=== PATIENT | male | born 1985 | race Caucasian/White ===

== ENCOUNTER 2018-10-22 17:13 | Emergency (ER) | payer SELFPAY ==
[2018-10-22 17:18] VITALS: BP 135/88; PULSE 75; TEMP 98.2; BMI 39.5
[2018-10-22] MEDS ORDERED: KETOROLAC TROMETHAMINE 30 MG/1 ML VIAL IM ONE (17:18)
--- NOTE | 2018-10-22 17:18 | PDOC ---
Rapid Medical Evaluation Time Seen by Provider: 10/22/18 17:15 Medical Evaluation: 10/22/18 17:17 This patient had a brief in-person evaluation in triage CC:lower back pain x 3 days. Reports pain radiating into both testicles states heavy lifting at work. Denies numbness in lower legs PE: NAD unlabored breathing no mid spinal tenderness orders: analgesia, u/a This patient will proceed to the ED for further evaluation Discharge Disposition - Diagnosis Lower back pain - Referrals - Patient Instructions - Post Discharge Activity
[2018-10-22] MEDS ORDERED: KETOROLAC TROMETHAMINE 30 MG/1 ML VIAL ONE (18:40)
--- NOTE | 2018-10-22 18:55 | PDOC ---
History of Present Illness - General Chief Complaint: Pain Stated Complaint: BACK/TESTICULAR PAIN Time Seen by Provider: 10/22/18 17:15 - History of Present Illness Initial Comments: 10/22/18 18:52 32-year-old male without comorbidities presents for evaluation of lower back pain radiating into his testicles times one week after trying to lift a heavy box of cheese at work a week ago. No systemic symptoms loss of bowel or bladder function saddle paresthesia or urinary issues. Past History - Past Medical History Allergies/Adverse Reactions: Allergies Allergy/AdvReac Type Severity Reaction Status Date / Time No Known Allergies Allergy Verified 10/22/18 17:18 COPD: No - Suicide/Smoking/Psychosocial Hx Smoking History: Never smoked Information on smoking cessation initiated: No Hx Alcohol Use: No Drug/Substance Use Hx: No Review of Systems - Review of Systems Musculoskeletal: Yes: Back Pain *Physical Exam - Vital Signs Last Vital Signs Temp Pulse Resp BP Pulse Ox 98.2 F 75 18 135/88 98 10/22/18 17:16 10/22/18 17:16 10/22/18 17:16 10/22/18 17:16 10/22/18 17:16 - Physical Exam Comments: 10/22/18 18:52 Lumbar spine skin color temperature are normal. Range of motion is full and nonpainful. No midline tenderness. Moderate right and left paralumbar musculature spasm and tenderness. 5 out of 5 strength bilateral lower extremities without gross sensory motor deficits neurovascular intact negative straight leg raise test. External genitalia is normal. Testicles are nontender. There is no palpable hernias inguinal or abdominal Medical Decision Making - Medical Decision Making 10/22/18 18:53 This is lumbar radiculopathy with testicular radicular symptoms. Racheal Scott follow-up with neurosurgery *DC/Admit/Observation/Transfer Diagnosis at time of Disposition: Lower back pain, Lumbar strain - Discharge Dispostion Disposition: HOME Condition at time of disposition: Stable Decision to Admit order: No - Referrals Referrals: Manjeet Collazo MD, [facility] [Staff Physician] - - Patient Instructions Printed Discharge Instructions: Lumbar Radiculopathy, DI for Lumbar Radiculopathy Additional Instructions: Please take the anti-inflammatory muscle relaxer as directed. Return to the emergency room for worsening symptoms. Follow-up with neurosurgery in 1-2 days without fail for further evaluation and treatment options. - Post Discharge Activity
== END 2018-10-22 19:14 | disposition home or self-care (01) ==
LOC: JER 17:13 → JERFT 17:13
PROC: 3E0233Z Introduction of Anti-inflammatory into Muscle, Percutaneous Approach (ICD-10-PCS; principal; 2018-10-22)
DX: M54.5 Low back pain (principal); S39.012A Strain of muscle, fascia and tendon of lower back, initial encounter; X58.XXXA Exposure to other specified factors, initial encounter; Y93.89 Activity, other specified; Y92.89 Other specified places as the place of occurrence of the external cause; Y99.0 Civilian activity done for income or pay
CPT/HCPCS: 99282-25

== ENCOUNTER 2018-11-22 04:18 | Emergency (ER) | payer SELFPAY ==
--- NOTE | 2018-11-22 04:26 | PDOC ---
History of Present Illness - General Stated Complaint: EARACHE - History of Present Illness Initial Comments: The pt is a 32M w/ no reported PMH who presents for evaluation of 1 day of right ear pain and drainage. He reports constant, throbbing, right ear pain that does not radiate, is not associated with hearing changes, is associated with ear drainage, is exacerbated by touch and not alleviated by anything he can identify. Denies fevers/chills, changes in hearing, changes in vision, N/V/C/D, chest pain , trouble breathing 11/22/18 04:41 Past History - Past Medical History Allergies/Adverse Reactions: Allergies Allergy/AdvReac Type Severity Reaction Status Date / Time No Known Allergies Allergy Verified 10/22/18 17:18 Home Medications: Ambulatory Orders Cyclobenzaprine HCl [Flexeril 10 mg] 10 mg PO HS PRN #10 tablet 10/22/18 Ibuprofen [Motrin -] 600 mg PO TID #30 tablet 10/22/18 Amox-Tr/K Cl [Augmentin - 500Mg Tablet] 1 tab PO TID #21 tab 11/22/18 Ofloxacin Otic [Floxin Otic (Ear) Solution -] 10 drop OT BID 5 Days #1 bottle COPD: No - Suicide/Smoking/Psychosocial Hx Smoking History: Never smoked Hx Alcohol Use: No Drug/Substance Use Hx: No Review of Systems - Review of Systems Able to Perform ROS?: Yes Comments:: GENERAL/CONSTITUTIONAL: No fever or chills. No weakness HEAD, EYES, EARS, NOSE AND THROAT: No change in vision. No sore throat CARDIOVASCULAR: No chest pain or shortness of breath RESPIRATORY: Denies cough, hemoptysis GASTROINTESTINAL: No nausea, vomiting, diarrhea or constipation GENITOURINARY: No dysuria, frequency, or change in urination MUSCULOSKELETAL: No joint or muscle swelling or pain. No neck or back pain SKIN: No rash NEUROLOGIC: No headache, vertigo, loss of consciousness, or change in strength/ sensation ENDOCRINE: No increased thirst. No abnormal weight change HEMATOLOGIC/LYMPHATIC: No anemia, easy bleeding, or history of blood clots ALLERGIC/IMMUNOLOGIC: No hives or skin allergy 11/22/18 04:25 Is the patient limited Pashto proficient: No *Physical Exam - Physical Exam Comments: GENERAL: Awake, alert, and oriented to person/place/time, in no acute distress HEAD: No signs of trauma, normocephalic, atraumatic EYES: PERRLA, EOMI, sclera anicteric, conjunctiva clear ENT: Hearing grossly normal, nares patent; R TM w/ effusion; R EAM w/ swelling/ erythema/and drainage; L TM normal; No uvular deviation. Moist mucosa LUNGS: No distress, speaks in full sentences, clear to auscultation bilaterally HEART: Regular rate and rhythm, normal S1 and S2, no murmurs appreciated, peripheral pulses normal and equal bilaterally ABDOMEN: Soft, nontender, normoactive bowel sounds. No guarding, no rebound EXTREMITIES: Normal inspection, Normal range of motion, no edema. No clubbing or cyanosis NEUROLOGICAL: Cranial nerves II through XII grossly intact. Normal speech, normal gait, no focal sensorimotor deficits SKIN: Warm, Dry 11/22/18 04:26 Medical Decision Making - Medical Decision Making The pt is a 32M w/ no reported PMH who presents for evaluation of 1 day of right ear pain and drainage likely due to OM/OE ED Course Augementin 500 PO Rx for Augmentin and Floxacin Otic gtt Plan for D/C w/ PCP f/u Discharge instructions and return precautions given Pt in agreement and verbalized understanding Dispo: home 11/22/18 04:52 *DC/Admit/Observation/Transfer Diagnosis at time of Disposition: Right otitis media Qualifiers: Otitis media type: unspecified Qualified Code(s): H66.91 - Otitis media, unspecified, right ear Right otitis externa Qualifiers: Otitis externa type: unspecified type Chronicity: acute Qualified Code(s): H60.501 - Unspecified acute noninfective otitis externa, right ear - Discharge Dispostion Disposition: HOME Condition at time of disposition: Stable Decision to Admit order: No - Prescriptions Prescriptions: Amox-Tr/K Cl [Augmentin - 500Mg Tablet] 1 tab PO TID #21 tab Ofloxacin Otic [Floxin Otic (Ear) Solution -] 10 drop OT BID 5 Days #1 bottle - [place] [facility] [place] [facility] [place]] Delroy Shankar MD [Staff Physician] - - Patient Instructions Printed Discharge Instructions: DI for Otitis Externa Additional Instructions: You were seen in the Emergency Department for evaluation of right ear pain and were found to have an infection of you right ear. A prescription for oral antibiotics and antibiotic drops were sent to your pharmacy. Take as directed. Follow up with your primary care provider or referral given. Return to the Emergency Department if you develop fevers/chills, changes in hearing, worsening symptoms, or any new/concerning symptoms. Lo vieron en el Departamento de Emergencias para evaluar el dolor en el odo derecho y se descubri que sepideh wilder infeccin en el odo derecho. Se envi wilder receta para antibiticos orales y gotas antibiticas a chapa farmacia. Tmelo delmi se le indique. Umair un seguimiento con chapa proveedor de atencin primaria o remisin. Regrese al Departamento de Emergencias si desarrolla fiebre / escalofros, cambios en la audicin, empeoramiento de los sntomas o cualquier sntoma nuevo o preocupante. Print Language: BANGLADESHI - Post Discharge Activity
[2018-11-22] MEDS ORDERED: ACETAMINOPHEN 325 MG TABLET (FP) PO ONE (04:38)
[2018-11-22] MEDS ORDERED: AMOX TR/POT CLAV 500MG/125MG TABLETS (FP) PO ONE (04:39)
--- NOTE | 2018-11-22 04:43 | PDOC ---
Attending Attestation - Resident Resident Name: GracieRene serrano - ED Attending Attestation I have performed the following: I have examined & evaluated the patient, The case was reviewed & discussed with the resident, I agree w/resident's findings & plan - HPI HPI: 11/22/18 04:53 Pt comes with bilat ear pain. No ill contacts. No swimming and no exposure to water. - Physicial Exam PE: 11/22/18 04:54 Agree with resident exam. Pt is afebrile. Pt has no other complaints. Pt appears well. - Medical Decision Making 11/22/18 04:56 Home with ear drops and augmentin BID x 7 days and ENT follow up. 11/22/18 05:22 Pt stable for discharge
[2018-11-22] MEDS ORDERED: ACETAMINOPHEN 325 MG TABLET (FP) ONE (04:45)
[2018-11-22] MEDS ORDERED: AMOX TR/POT CLAV 500MG/125MG TABLETS (FP) ONE (04:45)
[2018-11-22 04:50] VITALS: BP 145/96; PULSE 72; TEMP 98; BMI 37.5
== END 2018-11-22 05:07 | disposition home or self-care (01) ==
LOC: JER 04:18
DX: H66.91 Otitis media, unspecified, right ear (principal); H60.501 Unspecified acute noninfective otitis externa, right ear
CPT/HCPCS: 99281-25

== ENCOUNTER 2019-09-24 10:12 | Emergency (ER) | payer OTHER ==
[2019-09-24] MEDS ORDERED: ACETAMINOPHEN 325 MG TABLET (FP) PO ONE (10:22)
[2019-09-24] MEDS ORDERED: DIPHTH,PERTUSS(ACELL),TET 0.5 ML DISP.SYRIN IM ONE ×2 (10:23→10:28)
[2019-09-24 10:26] VITALS: BP 152/96; PULSE 92; TEMP 98.5; BMI 40.7
[2019-09-24] MEDS ORDERED: ACETAMINOPHEN 500 MG TABLET (FP) ONE (10:28)
[2019-09-24] MEDS ORDERED: AMOX TR/POT CLAV 875MG/125MG TABLETS (FP) PO ONE (11:31)
[2019-09-24] MEDS ORDERED: AMOX TR/POT CLAV 875MG/125MG TABLETS (FP) ONE (11:36)
[2019-09-24] MEDS ORDERED: LIDOCAINE HCL 1%, 10 MG/ML (20ML VIAL) ONE (12:08)
== END 2019-09-24 14:45 | disposition home or self-care (01) ==
LOC: FER 10:12
PROC: 0HQ1XZZ Repair Face Skin, External Approach (ICD-10-PCS; principal; 2019-09-24)
PROC: 3E0234Z Introduction of Serum, Toxoid and Vaccine into Muscle, Percutaneous Approach (ICD-10-PCS; principal; 2019-09-24)
DX: S01.81XA Laceration without foreign body of other part of head, initial encounter (principal); W29.3XXA Contact with powered garden and outdoor hand tools and machinery, initial encounter
CPT/HCPCS: 90715; 99283-25

== ENCOUNTER 2019-09-29 11:23 | Emergency (ER) | payer OTHER ==
[2019-09-29 11:41] VITALS: BP 147/90; PULSE 87; TEMP 98.3; BMI 39.5
--- NOTE | 2019-09-29 12:03 | PDOC ---
History of Present Illness - General Chief Complaint: Suture/Staple Removal(Here) Stated Complaint: SUTURE REMOVAL Time Seen by Provider: 09/29/19 11:26 History Source: Patient Exam Limitations: No Limitations - History of Present Illness Initial Comments: 09/29/19 11:57 33 yo M here for suture removal for 3 L facial lacerations sustained on 09/23. Patient denies pain or drainage from site. Denies any bleeding. Denies fevers. Has been doing local wound care. No other complaints. As per EMR, 11 sutures placed in most superior laceration, 14 in the middle laceration, and 10 in the most inferior laceration. Past History - Medical History Allergies/Adverse Reactions: Allergies Allergy/AdvReac Type Severity Reaction Status Date / Time No Known Allergies Allergy Verified 09/24/19 11:53 Home Medications: Ambulatory Orders Ciprofloxacin 0.3% Eye Drops [Ciloxan 0.3% Eye Drops -] 1 drop OS QID #1 bottle 12/12/18 Tylenol 650 mg PO PRN 12/12/18 Amox-Tr/K Cl [Augmentin - 875Mg Tablet] 1 tab PO BID #14 tablet 09/24/19 COPD: No - Immunization History Immunization Up to Date: Yes - Psycho-Social/Smoking History Smoking History: Never smoked Have you smoked in the past 12 months: No Number of Cigarettes Smoked Daily: 0 Information on smoking cessation initiated: No - Substance Abuse Hx (Audit-C & DAST Scrn) How often the patient has a drink containing alcohol: Never Score: In Men: 4 or > Positive; In Women: 3 or > Positive: 0 Screen Result (Pos requires Nsg. Audit-10AR): Negative In the last yr the pt used illegal drug/Rx for NonMed reason: No Score: Yes response is considered Positive: 0 Screen Result (Positive result requires Nsg. DAST-10): Negative Review of Systems - Review of Systems Able to Perform ROS?: Yes Comments:: 09/29/19 11:59 GENERAL/CONSTITUTIONAL: No fever or chills. No weakness. HEAD, EYES, EARS, NOSE AND THROAT: No change in vision. No ear pain or discharge. No sore throat. CARDIOVASCULAR: No chest pain or shortness of breath. RESPIRATORY: No cough, wheezing, or hemoptysis. GASTROINTESTINAL: No nausea, vomiting, diarrhea or constipation. GENITOURINARY: No dysuria, frequency, or change in urination. MUSCULOSKELETAL: No joint or muscle swelling or pain. No neck or back pain. SKIN: No rash. NEUROLOGIC: No headache, vertigo, loss of consciousness, or change in strength/sensation. ENDOCRINE: No increased thirst. No abnormal weight change. HEMATOLOGIC/LYMPHATIC: No anemia, easy bleeding, or history of blood clots. ALLERGIC/IMMUNOLOGIC: No hives or skin allergy. *Physical Exam - Vital Signs Last Vital Signs Temp Pulse Resp BP Pulse Ox 98.3 F 87 20 147/90 100 09/29/19 11:24 09/29/19 11:24 09/29/19 11:24 09/29/19 11:24 09/29/19 11:24 - Physical Exam 09/29/19 12:00 GENERAL: Well appearing, in no acute distress HEAD: + 3 lacerations with sutures in place to L temporal region, no surroudning erythema, well healed, no drainage, no ttp, no fluctuance EYES: EOMI, sclera anicteric, conjunctiva clear ENT: nares patent, oropharynx clear without exudates. MMM NECK: Normal ROM, supple LUNGS: CTAB. Good air entry. No wheezes, No Rhonchi and no crackles HEART: RRR, + s1 s2 ABDOMEN: Soft, nontender, normoactive bowel sounds. No guarding, no rebound. No masses EXTREMITIES: Warm and well perfused. No clubbing or cyanosis. No cords, erythema, or tenderness NEUROLOGICAL: Aox3, Speech fluent, face symmetric, tongue/uvula midline. Sensation grossly intact to light touch. Ambulatory with steady gait. Strength intact. No focal deficits. Medical Decision Making - Medical Decision Making 09/29/19 12:02 33 yo M here for suture removal, no signs/symptoms concerning for infection. Plan: -suture removed in ED without any complications, patient tolerated procedure well, bacitracin applied -d/c with return precautions, patient verbally given local wound care instructions, recommend PMD f/u as needed This clinical encounter is taking place during a federal and state health care emergency attributable to the novel Leyva Virus pandemic. The [place] of the Department of Health and Human Services has declared, pursuant to the Public Health Service Act 319F-3 (42 U.S.C. 247d-6d), that a covered persons activities related to medical countermeasures against COVID-19 will be immune from liability under Federal and State law. Discharge - Discharge Information Problems reviewed: Yes Clinical Impression/Diagnosis: Visit for suture removal Condition: Improved Disposition: HOME - Admission No - Follow up/Referral - Patient Discharge Instructions Patient Printed Discharge Instructions: DI for Suture Removal Additional Instructions: You should follow up with your PMD as needed. Return to the ED for new or worsening symptoms. Print Language: IRISH - Post Discharge Activity Work/Back to School Note: Back to Work
== END 2019-09-29 12:10 | disposition home or self-care (01) ==
LOC: FER 11:23
DX: Z48.02 Encounter for removal of sutures (principal)
CPT/HCPCS: 99283-25

== ENCOUNTER 2019-12-12 17:04 | Emergency (ER) | payer SELFPAY ==
--- NOTE | 2019-12-12 17:22 | PDOC ---
History of Present Illness <Jim Baker - Last Filed: 12/12/19 19:00> - History of Present Illness Initial Comments: 33 YOM w/ no significant past medical history presenting with abdominal pain of 3 weeks duration. Pain is located in RUQ, is 9/10 in intensity, worse in AM, no radiation, not taking anything. Similar episode in past, self resolved. Received US in past for current sc, was normal. Denies CP, SOB, N/V/D, fever, chills, recent sick contacts, h/o kidney stones, blood in urine or stool. <Yonathan Parks - Last Filed: 12/12/19 21:24> - General Chief Complaint: Pain, Acute Stated Complaint: ABD PAIN Time Seen by Provider: 12/12/19 17:21 Past History <Jim Baker - Last Filed: 12/12/19 19:00> - Medical History COPD: No - Immunization History Immunization Up to Date: No - Psycho-Social/Smoking History Smoking History: Never smoked Have you smoked in the past 12 months: No Number of Cigarettes Smoked Daily: 0 <Yonathan Parks - Last Filed: 12/12/19 21:24> - Medical History Allergies/Adverse Reactions: Allergies Allergy/AdvReac Type Severity Reaction Status Date / Time No Known Allergies Allergy Verified 12/12/19 17:05 Home Medications: Ambulatory Orders NK [No Known Home Medication] 12/12/19 Review of Systems - Review of Systems Constitutional: Yes: See HPI HEENTM: Yes: See HPI Respiratory: Yes: See HPI Cardiac (ROS): Yes: See HPI ABD/GI: Yes: See HPI : Yes: See HPI Musculoskeletal: Yes: See HPI Integumentary: Yes: See HPI Neurological: Yes: See HPI Endocrine: Yes: See HPI Hematologic/Lymphatic: Yes: See HPI <Yonathan Parks - Last Filed: 12/12/19 21:24> *Physical Exam - Vital Signs Last Vital Signs Temp Pulse Resp BP Pulse Ox 98.1 F 76 18 142/97 97 12/12/19 17:27 12/12/19 17:27 12/12/19 17:27 12/12/19 17:27 12/12/19 17:27 <Jim Baker - Last Filed: 12/12/19 19:00> - Physical Exam General Appearance: Yes: Appropriately Dressed HEENT: positive: EOMI, NATALI, Normal ENT Inspection Neck: positive: Trachea midline, Normal Thyroid Respiratory/Chest: positive: Lungs Clear, Normal Breath Sounds Cardiovascular: positive: Regular Rate, S1, S2 Gastrointestinal/Abdominal: positive: Normal Bowel Sounds, Tender, Tenderness (RUQ tenderness ) <Yonathan Parks - Last Filed: 12/12/19 21:24> ED Treatment Course - LABORATORY CBC & Chemistry Diagram: 12/12/19 18:35 12/12/19 18:46 - ADDITIONAL ORDERS Additional order review: Laboratory Results 12/12/19 18:35 Urine Color Yellow Urine Appearance Clear Urine pH 5.5 Urine Protein Negative Urine Glucose (UA) Negative Urine Ketones Trace Urine Blood Negative Urine Nitrite Negative Urine Bilirubin Negative Urine Urobilinogen 0.2 Ur Leukocyte Esterase Negative 12/12/19 18:35 RBC 5.19 MCV 89.3 MCHC 33.3 RDW 12.7 MPV 7.6 Neutrophils % 62.7 Lymphocytes % 28.4 Monocytes % 5.6 Eosinophils % 2.6 Basophils % 0.7 - Medications Given in the ED: ED Medications Discontinued Medications Generic Name Dose Route Start Last Admin Trade Name Crow PRN Reason Stop Dose Admin Acetaminophen 1,000 mg 12/12/19 18:23 12/12/19 18:32 Ofirmev Injection - IVPB 12/12/19 18:24 1,000 mg ONCE ONE Administration <Jim Baker - Last Filed: 12/12/19 19:00> - LABORATORY CBC & Chemistry Diagram: 12/12/19 18:35 12/12/19 18:46 <Yonathan Parks - Last Filed: 12/12/19 21:24> Medical Decision Making - Medical Decision Making 33 YOM no significant history with RUQ pain of 2 weeks duration - Vitals wnl - Exam revealing of TTP in RUQ - Will do CBC, CMP, lipase, RUQ US 12/12/19 18:58 - Patient was signed out to night team <Yonathan Parks - Last Filed: 12/12/19 21:24> Discharge <Jim Baker - Last Filed: 12/12/19 19:00> - Discharge Information Problems reviewed: Yes <Yonathan Parks - Last Filed: 12/12/19 21:24> - Discharge Information Clinical Impression/Diagnosis: Abdominal pain Condition: Stable
[2019-12-12 17:29] VITALS: BP 142/97; PULSE 76; TEMP 98.1; BMI 39.5
[2019-12-12] MEDS ORDERED: ACETAMINOPHEN 1000 MG/100 ML VIAL (NON FORMULARY) IVPB ONE (18:23)
[2019-12-12] MEDS ORDERED: ACETAMINOPHEN INJECTION 100 ML IVPB ONE (18:27)
[2019-12-12 18:40] LABS: BASO % 0.7 % (0-2.0); EOS % 2.6 % (0-4.5); HEMATOCRIT 46.4 % (35.4-49); HEMOGLOBIN 15.4 GM/dl (11.7-16.9); LYMPH % 28.4 % (8-40); MCH 29.7 pg (25.7-33.7); MCHC 33.3 g/dl (32.0-35.9); MEAN CELL VOLUME 89.3 fl (80-96); MEAN PLT VOLUME 7.6 fl (7.5-11.1); MONO % 5.6 % (3.8-10.2); NEUT % 62.7 % (42.8-82.8); PLATELET COUNT 310 K/MM3 (134-434); RBC 5.19 M/mm3 (4.00-5.60); RDW 12.7 % (11.9-15.9)
[2019-12-12 19:00] LABS: ALBUMIN 4.3 g/dl (3.4-5.0); CALCIUM 8.9 mg/dl (8.5-10); CREATININE 0.7 mg/dl (0.55-1.3); POTASSIUM 3.9 mmol/L (3.5-5.1); TOT PROT 7.6 g/dl (6.4-8.2)
--- NOTE | 2019-12-12 19:26 | PDOC ---
Attending Attestation - Resident Resident Name: Yonathan Parks - ED Attending Attestation I have performed the following: I have examined & evaluated the patient, The case was reviewed & discussed with the resident, I agree w/resident's findings & plan, Exceptions are as noted - HPI HPI: 12/12/19 19:25 33 years old past medical history significant for obesity presents to the ED with several month history of worsening right upper quadrant pain worse after meals. Described as a burning sensation moderate to severe lasting 1 hour at a time no fever no chills no nausea no vomiting - Physicial Exam PE: 12/12/19 19:25 Vitals: Triage Vital signs reviewed General Appearance: No acute distress, well nourished well developed, Head: Atraumatic, Cardiac: Regular rate and rhythym, no murmurs, no rubs, no gallops, Lungs: Clear to auscultation bilateral, good air movement bilaterally, Abdomen: Soft, non distended, normal bowel sounds, right upper quadrant tenderness to palpation extremities: Full range of motion to all extremities, no cyanosis, clubbing, or edema Psych: Normal mood, normal affect - Medical Decision Making 12/12/19 19:2633 years old morbidly obese with right upper quadrant tenderness to palpation and pain after meals. Will check labs lipase lipid panel triglycerides right upper quadrant ultrasound and reassess Dr. Castaneda to follow up US and reasses Discharge - Discharge Information Problems reviewed: Yes Clinical Impression/Diagnosis: Abdominal pain Qualifiers: Abdominal location: unspecified location Qualified Code(s): R10.9 - Unspecified abdominal pain Condition: Stable Disposition: HOME - Follow up/Referral Referrals: [facility] [place] [facility] [place] [Provider Group] - Patient Discharge Instructions Patient Printed Discharge Instructions: DI for Abdominal Pain-Adult Additional Instructions: You were seen in the ER for abdominal pain. We did laboratory work, and a CT scan, and there were no concerning abnormalities. Your pain improved in the ER. After our assessment, we do not believe you are having a medical emergency at this time, and we believe you are safe to go home. Please follow up with a primary doctor in 1-3 days. We are giving you referral information for our primary care clinic in this packet. Call their clinic on Saturday morning, tell them you were seen in the ER, and tell them you need a follow-up. If you have any new or worsening symptoms, please come back to the ER at any time (24 hours a day). Especially come back to the ER if you have worsening pain, vomiting, bloody stool, fever, chills, or loss of appetite with abdominal pain. If you are having severe or life threatening symptoms, or symptoms that make it unsafe to drive or have someone drive you, please call 911. - Post Discharge Activity
[2019-12-12 19:47] LABS: CHOLESTEROL 221 mg/dl (50-200); HDL CHOLESTEROL 45 mg/dl (40-60); TRIGLYCERIDES 129 mg/dl (0-150)
[2019-12-12 20:49] LABS: LDL CHOLESTEROL (ONLY SJRH) 151 mg/dL (5-100)
--- NOTE | 2019-12-12 21:50 | PDOC ---
History of Present Illness - General Chief Complaint: Pain, Acute Stated Complaint: ABD PAIN Time Seen by Provider: 12/12/19 17:21 History Source: Patient Exam Limitations: No Limitations - History of Present Illness Initial Comments: Patient's care was endorsed to me by Dr. Baker at the end of his shift pending RUQ US results, labs, and re-assessment. Patient assessed shortly after shift change without ttp and appearing very comfortable. States he is hungry, no f/c/n/v/d/c lately. Past History - Medical History Allergies/Adverse Reactions: Allergies Allergy/AdvReac Type Severity Reaction Status Date / Time No Known Allergies Allergy Verified 12/12/19 17:05 Home Medications: Ambulatory Orders NK [No Known Home Medication] 12/12/19 COPD: No Other medical history: DENIES - Immunization History Immunization Up to Date: No - Psycho-Social/Smoking History Smoking History: Never smoked Have you smoked in the past 12 months: No Number of Cigarettes Smoked Daily: 0 - Substance Abuse Hx (Audit-C & DAST Scrn) How often the patient has a drink containing alcohol: Monthly or less Number of drinks the patient has on a typical day: 1 or 2 How often the patient has six or more drinks on one occasion: Never Score: In Men: 4 or > Positive; In Women: 3 or > Positive: 1 Screen Result (Pos requires Nsg. Audit-10AR): Negative In the last yr the pt used illegal drug/Rx for NonMed reason: No Score: Yes response is considered Positive: 0 Screen Result (Positive result requires Nsg. DAST-10): Negative *Physical Exam - Vital Signs Last Vital Signs Temp Pulse Resp BP Pulse Ox 98.1 F 76 18 142/97 97 12/12/19 17:27 12/12/19 17:27 12/12/19 17:27 12/12/19 17:27 12/12/19 17:27 ED Treatment Course - LABORATORY CBC & Chemistry Diagram: 12/12/19 18:35 12/12/19 18:46 - ADDITIONAL ORDERS Additional order review: Laboratory Results 12/12/19 12/12/19 12/12/19 19:27 18:46 18:35 Sodium 136 Potassium 3.9 Chloride 104 Carbon Dioxide 26 Anion Gap 6 L BUN 18.0 Creatinine 0.7 Est GFR (CKD-EPI)AfAm 142.70 Est GFR (CKD-EPI)NonAf 123.13 Random Glucose 92 Calcium 8.9 Total Bilirubin 1.0 AST 28 ALT 32 Alkaline Phosphatase 77 Total Protein 7.6 Albumin 4.3 Triglycerides 129 Cholesterol 221 H Total LDL Cholesterol 151 H HDL Cholesterol 45 Lipase 95 Urine Color Yellow Urine Appearance Clear Urine pH 5.5 Urine Protein Negative Urine Glucose (UA) Negative Urine Ketones Trace Urine Blood Negative Urine Nitrite Negative Urine Bilirubin Negative Urine Urobilinogen 0.2 Ur Leukocyte Esterase Negative 12/12/19 18:35 RBC 5.19 MCV 89.3 MCHC 33.3 RDW 12.7 MPV 7.6 Neutrophils % 62.7 Lymphocytes % 28.4 Monocytes % 5.6 Eosinophils % 2.6 Basophils % 0.7 - Medications Given in the ED: ED Medications Discontinued Medications Generic Name Dose Route Start Last Admin Trade Name Freq PRN Reason Stop Dose Admin Acetaminophen 1,000 mg 12/12/19 18:23 12/12/19 18:32 Ofirmev Injection - IVPB 12/12/19 18:24 1,000 mg ONCE ONE Administration Medical Decision Making - Medical Decision Making Provider Orders Category Date Time Status CBC WITH DIFFERENTIAL Stat Lab 12/12/19 18:35 Completed COMP METABOLIC PANEL Stat Lab 12/12/19 18:46 Completed LIPASE Stat Lab 12/12/19 18:46 Completed LIPID PROFILE ([facility] ONLY) Stat Lab 12/12/19 19:27 Completed UA ([facility] ONLY) Stat Lab 12/12/19 18:35 Completed Acetaminophen Injection [Ofirmev Injection -] Medication 12/12/19 18:23 Discontinued 1,000 mg IVPB ONCE ONE Acetaminophen Injection [Ofirmev Injection -] 100 ml Medication 12/12/19 18:27 Discontinued IVPB UD Test Diet Needed Abd US, Please Enter See Order Reminders 12/12/19 18:24 Ordered ABDOMEN US -LIMITED [US] Stat Ultrasound 12/12/19 18:23 Taken Medications Discontinued Medications Generic Name Dose Route Start Last Admin Trade Name Freq PRN Reason Stop Dose Admin Acetaminophen 1,000 mg 12/12/19 18:23 12/12/19 18:32 Ofirmev Injection - IVPB 12/12/19 18:24 1,000 mg ONCE ONE Administration Acetaminophen Confirm 12/12/19 18:27 Ofirmev Injection - Administered 12/12/19 18:28 Dose 100 mls @ ud IVPB .STK-MED ONE Lab Results WBC 13.0 K/mm3 (4.0-10.8) H 12/12/19 18:35 RBC 5.19 M/mm3 (4.00-5.60) 12/12/19 18:35 Hgb 15.4 GM/dl (11.7-16.9) 12/12/19 18:35 Hct 46.4 % (35.4-49) 12/12/19 18:35 MCV 89.3 fl (80-96) 12/12/19 18:35 MCH 29.7 pg (25.7-33.7) 12/12/19 18:35 MCHC 33.3 g/dl (32.0-35.9) 12/12/19 18:35 RDW 12.7 % (11.9-15.9) 12/12/19 18:35 Plt Count 310 K/MM3 (134-434) 12/12/19 18:35 MPV 7.6 fl (7.5-11.1) 12/12/19 18:35 Absolute Neuts (auto) 8.2 K/mm3 12/12/19 18:35 Neutrophils % 62.7 % (42.8-82.8) 12/12/19 18:35 Lymphocytes % 28.4 % (8-40) 12/12/19 18:35 Monocytes % 5.6 % (3.8-10.2) 12/12/19 18:35 Eosinophils % 2.6 % (0-4.5) 12/12/19 18:35 Basophils % 0.7 % (0-2.0) 12/12/19 18:35 Sodium 136 mmol/L (136-145) 12/12/19 18:46 Potassium 3.9 mmol/L (3.5-5.1) 12/12/19 18:46 Chloride 104 mmol/L (98-107) 12/12/19 18:46 Carbon Dioxide 26 mmol/L (21-32) 12/12/19 18:46 Anion Gap 6 MMOL/L (8-16) L 12/12/19 18:46 BUN 18.0 mg/dl (7-18) 12/12/19 18:46 Creatinine 0.7 mg/dl (0.55-1.3) 12/12/19 18:46 Est GFR (CKD-EPI)AfAm 142.70 12/12/19 18:46 Est GFR (CKD-EPI)NonAf 123.13 12/12/19 18:46 Random Glucose 92 mg/dl (74-106) 12/12/19 18:46 Calcium 8.9 mg/dl (8.5-10) 12/12/19 18:46 Total Bilirubin 1.0 mg/dl (0.2-1) 12/12/19 18:46 AST 28 U/L (15-37) 12/12/19 18:46 ALT 32 U/L (13-61) 12/12/19 18:46 Alkaline Phosphatase 77 U/L (45-117) 12/12/19 18:46 Total Protein 7.6 g/dl (6.4-8.2) 12/12/19 18:46 Albumin 4.3 g/dl (3.4-5.0) 12/12/19 18:46 Triglycerides 129 mg/dl (0-150) 12/12/19 19:27 Cholesterol 221 mg/dl (50-200) H 12/12/19 19:27 Total LDL Cholesterol 151 mg/dL (5-100) H 12/12/19 19:27 HDL Cholesterol 45 mg/dl (40-60) 12/12/19 19:27 Lipase 95 U/L (73-393) 12/12/19 18:46 Urine Color Yellow 12/12/19 18:35 Urine Appearance Clear 12/12/19 18:35 Urine pH 5.5 (4.5-8) 12/12/19 18:35 Urine Protein Negative (NEGATIVE) 12/12/19 18:35 Urine Glucose (UA) Negative (NEGATIVE) 12/12/19 18:35 Urine Ketones Trace (NEGATIVE) 12/12/19 18:35 Urine Blood Negative (NEGATIVE) 12/12/19 18:35 Urine Nitrite Negative (NEGATIVE) 12/12/19 18:35 Urine Bilirubin Negative (NEGATIVE) 12/12/19 18:35 Urine Urobilinogen 0.2 (0.2-1.0) 12/12/19 18:35 Ur Leukocyte Esterase Negative (NEGATIVE) 12/12/19 18:35 USS Patient is well appearing and complaint-free on re-assessment. No vomiting or diarrhea in the department, no pain at this time, repeat abdominal exam is paz ign. States he is hungry and wants to go home. USS without concerning findings. He is appropriate for discharge home with close outpatient follow-up, he is given referral info to [facility] and will make an appointment. Discharge - Discharge Information Problems reviewed: Yes Clinical Impression/Diagnosis: Abdominal pain Qualifiers: Abdominal location: unspecified location Qualified Code(s): R10.9 - Unspecified abdominal pain Condition: Stable Disposition: HOME - Admission No - Follow up/Referral [place] [facility] [place] [facility] [place]Provider Group] - Patient Discharge Instructions Patient Printed Discharge Instructions: DI for Abdominal Pain-Adult Additional Instructions: You were seen in the ER for abdominal pain. We did laboratory work, and a CT sca n, and there were no concerning abnormalities. Your pain improved in the ER. After our assessment, we do not believe you are having a medical emergency at this time, and we believe you are safe to go home. Please follow up with a primary doctor in 1-3 days. We are giving you referral information for our primary care clinic in this packet. Call their clinic on Saturday morning, tell them you were seen in the ER, and tell them you need a follow-up. If you have any new or worsening symptoms, please come back to the ER at any time (24 hours a day). Especially come back to the ER if you have worsening pain, vomiting, bloody stool, fever, chills, or loss of appetite with abdominal pain. If you are having severe or life threatening symptoms, or symptoms that make it unsafe to drive or have someone drive you, please call 911. - Post Discharge Activity
== END 2019-12-12 22:03 | disposition home or self-care (01) ==
LOC: FER 17:04
PROC: 3E033NZ Introduction of Analgesics, Hypnotics, Sedatives into Peripheral Vein, Percutaneous Approach (ICD-10-PCS; principal; 2019-12-12)
DX: R10.9 Unspecified abdominal pain (principal)
CPT/HCPCS: 36415; 76705-TC; 80053; 80061; 81003; 83690; 83721; 85025; 99284-25; J0131

== ENCOUNTER 2021-01-18 11:12 | Emergency (ER) | payer SELFPAY ==
[2021-01-18 11:20] VITALS: BP 150/98; PULSE 82; TEMP 98.2; BMI 37.3
[2021-01-18 11:54] LABS: BASO % 4.1 % (0-2.0); EOS % 1.8 % (0-4.5); HEMATOCRIT 44.2 % (35.4-49); HEMOGLOBIN 15.3 GM/dl (11.7-16.9); LYMPH % 29.7 % (8-40); MCH 30.7 pg (25.7-33.7); MCHC 34.5 g/dl (32.0-35.9); MEAN CELL VOLUME 88.8 fl (80-96); MEAN PLT VOLUME 7.5 fl (7.5-11.1); MONO % 7.4 % (3.8-10.2); PLATELET COUNT 302 10^3/uL (134-434); RBC 4.98 M/mm3 (4.00-5.60); RDW 12.5 % (11.9-15.9); WHITE BLOOD COUNT 11.8 K/mm3 (4.0-10.8)
[2021-01-18 12:06] LABS: ALBUMIN 4.3 g/dl (3.4-5.0); ALK PHOS 70 U/L (45-117); ANION GAP 12 MMOL/L (8-16); BILIRUBIN,TOTAL 1.5 mg/dl (0.2-1); CHLORIDE 97 mmol/L (98-107); CO2 25 mmol/L (21-32); CREATININE 0.8 mg/dl (0.55-1.3); GLUCOSE,RANDOM 167 mg/dl (74-106); SGOT/AST 33 U/L (15-37); SGPT/ALT 39 U/L (13-61); SODIUM 134 mmol/L (136-145); TOT PROT 7.8 g/dl (6.4-8.2)
== END 2021-01-18 13:29 | disposition home or self-care (01) ==
LOC: FER 11:12
DX: R07.9 Chest pain, unspecified (principal)
CPT/HCPCS: 36415; 71046-TC-FY; 80053; 82550; 82553; 84484; 85025; 93005; 99285-25

== ENCOUNTER 2023-02-22 18:07 | Emergency (ER) | payer OTHER ==
[2023-02-22 18:20] VITALS: BP 157/98; PULSE 88; RESP 18; TEMP 98.3; BMI 39.5
== END 2023-02-22 19:07 | disposition home or self-care (01) ==
LOC: FER 18:07
DX: R07.89 Other chest pain (principal)
CPT/HCPCS: 71045-TC-FY; 93005; 93010; 99284-25